=== PATIENT | female | born 1955 | race Caucasian/White ===

== ENCOUNTER → 2016-12-07 | Outpatient (CLI) | payer OTHER ==
[~2016-12-07] MED LIST: ASPI-621 PO; CHOL10003 PO; LEVO75TA5 PO; MULT-709 PO; OMEG1CAP23 PO
== END | disposition home or self-care (01) ==
LOC: CFH 07:29
PROVIDERS: ATTEND Surgery
DX: N63 Unspecified lump in breast (principal)
CPT/HCPCS: 76641; G0206

== ENCOUNTER 2016-12-12 10:39 | Day surgery (SDC) | payer OTHER ==
[~2016-12-12] VITALS: Ht 162.6 cm; Wt 66.8 kg
[2016-12-12] MEDS ORDERED: LIDOCAINE 1%, 2ML ONE (12:32)
[2016-12-12] MEDS ORDERED: LACTATED RINGERS 1,000 ML IV SCH (12:47)
[2016-12-12 12:48] VITALS: BP 129/86
[2016-12-12] MEDS ORDERED: LIDOCAINE 1%, 2ML SQ PRN (13:00)
[2016-12-12] MEDS ORDERED: PROPOFOL 10 MG/ML, 20ML ONE (13:23)
[2016-12-12] MEDS ORDERED: CEFAZOLIN 1,000 MG ONE (13:23)
[2016-12-12] MEDS ORDERED: ONDANSETRON 2MG/ML, 2ML ONE (13:23)
[2016-12-12] MEDS ORDERED: ROCURONIUM 10 MG/ML ONE (13:23)
[2016-12-12] MEDS ORDERED: SUCCINYLCHOLINE 20 MG/ML, 10ML ONE (13:23)
[2016-12-12] MEDS ORDERED: DEXAMETHASONE 4 MG/ML, 1ML ONE (13:23)
[2016-12-12] MEDS ORDERED: FENTANYL PF 100 MCG/2ML IV PRN (13:30)
[2016-12-12] MEDS ORDERED: HYDROcodone/APAP 7.5-325MG/15ML UDC PO PRN (13:30)
[2016-12-12] MEDS ORDERED: ONDANSETRON 2MG/ML, 2ML IVPush PRN (13:30)
[2016-12-12] MEDS ORDERED: PROMETHAZINE 25 MG/ML, 1ML IV PRN (13:30)
[2016-12-12] MEDS ORDERED: ACETAMINOPHEN 325 MG TABLET PO PRN (13:30)
[2016-12-12] MEDS ORDERED: HYDROmorphone 1 MG/ML, 1ML IV PRN (13:30)
[2016-12-12] MEDS ORDERED: OXYcodone 5 MG/5 ML ORAL.SOL UDC PO PRN (13:30)
[2016-12-12] MEDS ORDERED: KETOROLAC 30 MG/1 ML IV PRN (13:30)
[2016-12-12] MEDS ORDERED: LIDOCAINE 1%, 20ML ONE (14:07)
[2016-12-12] MEDS ORDERED: MEPERIDINE/PF 25MG/0.5ML ONE (14:44)
[2016-12-12] MEDS ORDERED: MEPERIDINE/PF 25MG/0.5ML IVPush PRN (15:00)
== END 2016-12-12 17:33 ==
LOC: CFH 10:39 → EDSTATUS 11:00 → OUT 17:33
PROVIDERS: ATTEND Surgery
DX: C50.911 Malignant neoplasm of unspecified site of right female breast (principal); E03.9 Hypothyroidism, unspecified; Z98.890 Other specified postprocedural states; Z72.89 Other problems related to lifestyle
CPT/HCPCS: 19285; 19301; 38525; 76098; 88305; 88307; G0206; J0171; J0330; J0690; J1100; J1170; J1885; J2175; J2250; J2405; J2704; J3010; J3490; J7120; 88341; 88342; G0461

== ENCOUNTER → 2016-12-29 | Outpatient (CLI) | payer OTHER ==
[~2016-12-29] MED LIST changes: +OMNIPAQUE 350 MG/ML, 100ML BOTTLE ONE
== END | disposition home or self-care (01) ==
LOC: PETCFH 11:16
PROVIDERS: ATTEND Internal Medicine Hematology & Oncology
DX: C50.411 Malignant neoplasm of upper-outer quadrant of right female breast (principal); R91.8 Other nonspecific abnormal finding of lung field; M89.8X8 Other specified disorders of bone, other site; M47.894 Other spondylosis, thoracic region; M25.811 Other specified joint disorders, right shoulder; K76.0 Fatty (change of) liver, not elsewhere classified; N30.90 Cystitis, unspecified without hematuria; N28.89 Other specified disorders of kidney and ureter; N32.89 Other specified disorders of bladder
CPT/HCPCS: 71260; 74177; 78306; Q9967

== ENCOUNTER 2017-01-05 06:08 | Day surgery (SDC) | payer OTHER ==
[~2017-01-05] VITALS: Ht 162.6 cm; Wt 64.1 kg
[~2017-01-05 06:08] MED LIST changes: -OMNIPAQUE 350 MG/ML, 100ML BOTTLE ONE
[2017-01-05] MEDS ORDERED: LACTATED RINGERS 1,000 ML IV SCH ×2 (06:27→07:00)
[2017-01-05 06:30] VITALS: BP 122/78
[2017-01-05] MEDS ORDERED: LIDOCAINE 1%, 2ML SQ PRN (06:30)
[2017-01-05] MEDS ORDERED: LIDOCAINE 1%, 2ML ONE (06:34)
[2017-01-05] MEDS ORDERED: PROPOFOL 10 MG/ML, 20ML ONE ×2 (07:14→07:23)
[2017-01-05] MEDS ORDERED: SUCCINYLCHOLINE 20 MG/ML, 10ML ONE (07:15)
[2017-01-05] MEDS ORDERED: ROCURONIUM 10MG/ML,5ML ONE (07:15)
[2017-01-05] MEDS ORDERED: FENTANYL PF 100 MCG/2ML ONE (07:16)
[2017-01-05] MEDS ORDERED: ONDANSETRON 2MG/ML, 2ML ONE (07:17)
[2017-01-05] MEDS ORDERED: METOCLOPRAMIDE 5 MG/ML, 2ML ONE (07:17)
[2017-01-05] MEDS ORDERED: DEXAMETHASONE 4 MG/ML, 1ML ONE (07:17)
[2017-01-05] MEDS ORDERED: KETOROLAC 30 MG/1 ML IV PRN (07:30)
[2017-01-05] MEDS ORDERED: HYDROmorphone 1 MG/ML, 1ML IV PRN (07:30)
[2017-01-05] MEDS ORDERED: LABETALOL 5MG/ML, 20ML IV PRN (07:30)
[2017-01-05] MEDS ORDERED: OXYcodone 5 MG/5 ML ORAL.SOL UDC PO PRN (07:30)
[2017-01-05] MEDS ORDERED: EPHEDRINE 50 MG/ML, 1ML IVPush PRN (07:30)
[2017-01-05] MEDS ORDERED: FENTANYL PF 100 MCG/2ML IV PRN (07:30)
[2017-01-05] MEDS ORDERED: ACETAMINOPHEN 325 MG TABLET PO PRN (07:30)
[2017-01-05] MEDS ORDERED: hydrALAzine 20 MG/ML, 1ML IV PRN (07:30)
[2017-01-05] MEDS ORDERED: METOCLOPRAMIDE 5 MG/ML, 2ML IV PRN (07:30)
[2017-01-05] MEDS ORDERED: ALBUTEROL SULFATE 2.5 MG/3 ML NPPB PRN (07:30)
[2017-01-05] MEDS ORDERED: HYDROcodone/APAP 7.5-325MG/15ML UDC PO PRN (07:30)
[2017-01-05] MEDS ORDERED: ONDANSETRON 2MG/ML, 2ML IVPush PRN (07:30)
[2017-01-05] MEDS ORDERED: PROMETHAZINE 25 MG/ML, 1ML IV PRN (07:30)
[2017-01-05] MEDS ORDERED: METOPROLOL 1 MG/ML, 5ML IV PRN (07:30)
[2017-01-05] MEDS ORDERED: CEFAZOLIN 1,000 MG ONE (07:32)
[2017-01-05] MEDS ORDERED: BUPIVACAINE/PF 0.5% INFIL ONE (07:51)
[2017-01-05] MEDS ORDERED: EPINEPHRINE 1 MG/ML, 1ML INFIL ONE (07:52)
[2017-01-05] MEDS ORDERED: HEPARIN 1,000 UNITS/ML, 10ML IV ONE (07:53)
[2017-01-05] MEDS ORDERED: ACETAMINOPHEN 650 MG/20.3 ML UDC ONE (08:42)
== END 2017-01-05 10:25 | disposition home or self-care (01) ==
LOC: OUT 06:08
PROVIDERS: ATTEND Surgery
DX: C50.911 Malignant neoplasm of unspecified site of right female breast (principal); E03.9 Hypothyroidism, unspecified; Z80.0 Family history of malignant neoplasm of digestive organs
CPT/HCPCS: 36561; 77001; C1788; J0171; J0330; J0690; J1100; J1644; J2405; J2704; J2765; J3010; J3490; J7120

== ENCOUNTER → 2017-01-06 | Outpatient (CLI) | payer OTHER ==
[~2017-01-06] MED LIST changes: +BUPIVACAINE/PF 0.5% ONE; +EPINEPHRINE 1 MG/ML, 1ML ONE; +HEPARIN 1,000 UNITS/ML, 10ML ONE
== END | disposition home or self-care (01) ==
LOC: CFH 08:40
PROVIDERS: ATTEND Internal Medicine Hematology & Oncology
DX: I08.1 Rheumatic disorders of both mitral and tricuspid valves (principal); C50.411 Malignant neoplasm of upper-outer quadrant of right female breast
CPT/HCPCS: 77001; 93306; J0171; J1644; J3490

== ENCOUNTER → 2017-03-17 | Outpatient (CLI) | payer OTHER ==
[~2017-03-17] MED LIST changes: -BUPIVACAINE/PF 0.5% ONE; -EPINEPHRINE 1 MG/ML, 1ML ONE; -HEPARIN 1,000 UNITS/ML, 10ML ONE
== END | disposition home or self-care (01) ==
LOC: ROC 09:10
PROVIDERS: ATTEND Radiology Radiation Oncology
DX: C50.411 Malignant neoplasm of upper-outer quadrant of right female breast (principal); E03.9 Hypothyroidism, unspecified; G43.909 Migraine, unspecified, not intractable, without status migrainosus
CPT/HCPCS: 99214; G0463

== ENCOUNTER → 2017-04-26 | Outpatient (CLI) | payer OTHER ==
[~2017-04-26] MED LIST changes: +OMNIPAQUE 350 MG/ML, 100ML BOTTLE ONE
== END | disposition home or self-care (01) ==
LOC: CFH 10:12
PROVIDERS: ATTEND Internal Medicine Hematology & Oncology
DX: C50.411 Malignant neoplasm of upper-outer quadrant of right female breast (principal); R91.8 Other nonspecific abnormal finding of lung field
CPT/HCPCS: 71260; 74177; Q9967

== ENCOUNTER → 2017-05-04 | Outpatient (CLI) | payer OTHER ==
[~2017-05-04] MED LIST changes: +CALC1TAB4 PO; -OMNIPAQUE 350 MG/ML, 100ML BOTTLE ONE
[2017-05-04 16:03] LABS: BASOPHILS # (AUTO) 0.05 x10^3/uL (0-0.1); BASOPHILS % (AUTO) 1 % (0-1); EOSINOPHILS % (AUTO) 4 % (1-7); LYMPHOCYTES # (AUTO) 0.55 x10^3/uL (1-3.4); LYMPHOCYTES % (AUTO) 7 % (22-44); MD NO; MEAN CORPUSCULAR HEMOGLOBIN 33.8 pg (27.0-34.8); MEAN CORPUSCULAR HGB CONC 33.6 g/dL (32.4-35.8); MEAN CORPUSCULAR VOLUME 100.6 fL (80-100); MEAN PLATELET VOLUME 8.8 fL (7.4-10.4); MONOCYTES # (AUTO) 0.49 x10^3/uL (0.2-0.8); MONOCYTES % (AUTO) 6 % (2-9); NEUTROPHILS # (AUTO) 6.36 x10^3/uL (1.8-6.8); NEUTROPHILS % (AUTO) 82 % (42-75); PLATELET COUNT 305 x10^3/uL (130-400); RED BLOOD COUNT 3.85 x10^6/uL (3.82-5.3); RED CELL DISTRIBUTION WIDTH 16.7 % (9.6-15.2)
== END ==
LOC: STAR 15:04
PROVIDERS: ATTEND Surgery
DX: Z01.818 Encounter for other preprocedural examination (principal)
CPT/HCPCS: 36415; 85025; 93005

== ENCOUNTER 2017-05-15 06:16 | Day surgery (SDC) | payer OTHER ==
[~2017-05-15] VITALS: Ht 162.6 cm; Wt 61.0 kg
[2017-05-15] MEDS ORDERED: EPINEPHRINE 1 MG/ML, 1ML ONE (06:21)
[2017-05-15] MEDS ORDERED: BUPIVACAINE/PF 0.5% ONE (06:21)
[2017-05-15] MEDS ORDERED: MIDAZOLAM 1 MG/ML, 2ML ONE (07:14)
[2017-05-15] MEDS ORDERED: FENTANYL PF 250 MCG/5ML ONE (07:15)
[2017-05-15] MEDS ORDERED: LACTATED RINGERS 1,000 ML IV SCH ×2 (07:24→13:30)
[2017-05-15 07:25] VITALS: BP 117/82
[2017-05-15] MEDS ORDERED: LIDOCAINE-MPF 1%, 2ML INFIL PRN (07:30)
[2017-05-15] MEDS ORDERED: SCOPOLAMINE PATCH, 1.5MG PATCH.TD72 TD ONE ×2 (08:11→08:30)
[2017-05-15] MEDS ORDERED: LIDOCAINE 2% 100MG/5ML SYRINGE ONE (08:52)
[2017-05-15] MEDS ORDERED: PROMETHAZINE 12.5 MG SUPP PR PRN (09:00)
[2017-05-15] MEDS ORDERED: PROMETHAZINE 25 MG/ML, 1ML IV PRN (09:00)
[2017-05-15] MEDS ORDERED: ACETAMINOPHEN 325 MG TABLET PO PRN (09:00)
[2017-05-15] MEDS ORDERED: ONDANSETRON 2MG/ML, 2ML IVPush PRN ×2 (09:00→13:30)
[2017-05-15] MEDS ORDERED: HYDROcodone/APAP 7.5-325MG/15ML UDC PO PRN (09:00)
[2017-05-15] MEDS ORDERED: DEXAMETHASONE 4 MG/ML, 1ML ONE (09:13)
[2017-05-15] MEDS ORDERED: CEFAZOLIN 1,000 MG ONE (09:13)
[2017-05-15] MEDS ORDERED: GLYCOPYRROLATE 0.2MG/1ML, 5ML ONE (09:13)
[2017-05-15] MEDS ORDERED: SUCCINYLCHOLINE 20 MG/ML, 10ML ONE (09:13)
[2017-05-15] MEDS ORDERED: ONDANSETRON 2MG/ML, 2ML ONE ×2 (09:13→12:52)
[2017-05-15] MEDS ORDERED: ROCURONIUM 10 MG/ML,10ML ONE (09:13)
[2017-05-15] MEDS ORDERED: NEOSTIGMINE 1 MG/ML, 10ML ONE (09:13)
[2017-05-15] MEDS ORDERED: PROPOFOL 10 MG/ML, 20ML ONE (09:13)
[2017-05-15] MEDS ORDERED: FENTANYL PF 100 MCG/2ML ONE ×2 (09:33→10:40)
[2017-05-15] MEDS ORDERED: ACETAMINOPHEN 650 MG/20.3 ML UDC ONE (10:40)
[2017-05-15] MEDS ORDERED: OXYcodone 5 MG/5 ML ORAL.SOL UDC ONE ×2 (10:40→11:29)
[2017-05-15] MEDS: FENTANYL PF 100 MCG/2ML IV PRN ×3 (10:47→11:00)
[2017-05-15] MEDS: OXYcodone 5 MG/5 ML ORAL.SOL UDC PO PRN ×2 (10:52→11:35)
[2017-05-15] MEDS ORDERED: HYDROmorphone 2 MG/ML, 1ML ONE (11:12)
[2017-05-15] MEDS: HYDROmorphone 1 MG/ML, 1ML IV PRN ×2 (11:17→11:29)
[2017-05-15 12:15] VITALS: BP 115/73
[2017-05-15] MEDS ORDERED: MULTIVITAMINS/MINERALS TABLET PO SCH (13:01)
[2017-05-15] MEDS ORDERED: CALCIUM/VITAMIN D3 250-125 TABLET PO SCH (13:01)
[2017-05-15 13:08] VITALS: BP 105/68
[2017-05-15] MEDS ORDERED: HYDROcodone/APAP 5/325 TABLET PO PRN (13:30)
[2017-05-15] MEDS ORDERED: MORPHINE SULFATE 4 MG/ML, 1ML IVPush PRN (13:30)
[2017-05-15] MEDS ORDERED: HYDR-883 PO (16:40)
[2017-05-15 17:25] VITALS: BP 91/68
[2017-05-16] MEDS ORDERED: LEVOTHYROXINE 75 MCG TABLET PO SCH (06:00)
[2017-05-16] MEDS ORDERED: CHOLECALCIFEROL 1,000 UNIT TABLET PO SCH (09:00)
== END 2017-05-15 17:50 | disposition home or self-care (01) ==
LOC: OUT 06:16 → 4NOR 12:03 → OUT 17:50
PROVIDERS: ATTEND Surgery
DX: C50.911 Malignant neoplasm of unspecified site of right female breast (principal); E03.9 Hypothyroidism, unspecified; Z98.890 Other specified postprocedural states; Z88.6 Allergy status to analgesic agent; Z91.018 Allergy to other foods; Z72.89 Other problems related to lifestyle
CPT/HCPCS: 19301; 88307; C1729; J0171; J0330; J0690; J1100; J1170; J2250; J2405; J2704; J3010; J3490; J7120; J2710

== ENCOUNTER → 2017-05-26 | Outpatient (CLI) | payer OTHER ==
[~2017-05-26] MED LIST changes: +HYDR-883 PO
== END | disposition home or self-care (01) ==
LOC: ROC 13:06
PROVIDERS: ATTEND Radiology Radiation Oncology
DX: C50.411 Malignant neoplasm of upper-outer quadrant of right female breast (principal)
CPT/HCPCS: 99212; G0463

== ENCOUNTER → 2017-09-06 | Outpatient (CLI) | payer OTHER | END | disposition home or self-care (01) | LOC: CFH 13:44 | PROVIDERS: ATTEND Radiology Radiation Oncology | DX: N63.31 Unspecified lump in axillary tail of the right breast (principal); N64.89 Other specified disorders of breast; Z85.3 Personal history of malignant neoplasm of breast ==

== ENCOUNTER → 2017-11-02 | Outpatient (CLI) | payer OTHER | END | disposition home or self-care (01) | LOC: ROC 07:09 | PROVIDERS: ATTEND Radiology Radiation Oncology | DX: C50.411 Malignant neoplasm of upper-outer quadrant of right female breast (principal); Z90.13 Acquired absence of bilateral breasts and nipples | CPT/HCPCS: 99212; G0463 ==

== ENCOUNTER → 2018-04-23 | Outpatient (CLI) | payer OTHER ==
[~2018-04-23] MED LIST changes: -ASPI-621 PO; +ASPI81TA45 PO; +HYDR-3652 PO; -HYDR-883 PO
== END | disposition home or self-care (01) ==
LOC: ROC 07:27
PROVIDERS: ATTEND Radiology Radiation Oncology
DX: Z08 Encounter for follow-up examination after completed treatment for malignant neoplasm (principal); C50.411 Malignant neoplasm of upper-outer quadrant of right female breast
CPT/HCPCS: 99212; G0463

== ENCOUNTER → 2018-06-11 | Outpatient (CLI) | payer OTHER ==
[~2018-06-11] MED LIST changes: +OMNIPAQUE 350 MG/ML, 75ML BOTTLE ONE
== END | disposition home or self-care (01) ==
LOC: CFH 09:38
PROVIDERS: ATTEND Internal Medicine Hematology & Oncology
DX: C50.411 Malignant neoplasm of upper-outer quadrant of right female breast (principal); R91.8 Other nonspecific abnormal finding of lung field
CPT/HCPCS: 71260; Q9967

== ENCOUNTER → 2019-10-02 | Outpatient (CLI) | payer OTHER ==
[~2019-10-02] MED LIST changes: -OMNIPAQUE 350 MG/ML, 75ML BOTTLE ONE
== END | disposition home or self-care (01) ==
LOC: ROC 07:18
PROVIDERS: ATTEND Radiology Radiation Oncology
DX: C50.411 Malignant neoplasm of upper-outer quadrant of right female breast (principal); Z90.13 Acquired absence of bilateral breasts and nipples

== ENCOUNTER → 2020-01-23 | Outpatient (CLI) | payer OTHER | END | disposition home or self-care (01) | LOC: ROC 07:15 | PROVIDERS: ATTEND Radiology Radiation Oncology | DX: Z08 Encounter for follow-up examination after completed treatment for malignant neoplasm (principal); Z85.3 Personal history of malignant neoplasm of breast | CPT/HCPCS: 99212; G0463 ==

== ENCOUNTER 2020-08-19 10:47 | Outpatient (CLI) | payer OTHER ==
[~2020-08-19 10:47] MED LIST changes: +HYDR-1067 PO; -HYDR-3652 PO
== END 2020-08-19 23:59 | disposition home or self-care (01) ==
LOC: ROC 10:47
PROVIDERS: ATTEND Radiology Radiation Oncology
DX: Z02.9 Encounter for administrative examinations, unspecified (principal)

== ENCOUNTER 2020-09-10 07:10 | Outpatient (CLI) | payer OTHER | END 2020-09-10 23:59 | disposition home or self-care (01) | LOC: ROC 07:10 | PROVIDERS: ATTEND Radiology Radiation Oncology | DX: Z08 Encounter for follow-up examination after completed treatment for malignant neoplasm (principal); Z85.3 Personal history of malignant neoplasm of breast | CPT/HCPCS: 99212; G0463 ==